=== PATIENT | male | born 1990 | race Caucasian/White ===

== ENCOUNTER 2017-04-03 16:45 | Emergency (ER) | payer OTHER ==
[~2017-04-03] VITALS: Ht 167.6 cm; Wt 67.1 kg
[2017-04-03 16:49] VITALS: TEMP 36.8; Ht 167.6 cm; Wt 67.1 kg
[2017-04-03] MEDS ORDERED: SODIUM CHLORIDE 0.9% 1000ML 1,000 ML IV STA (17:10)
[2017-04-03] MEDS ORDERED: MoRPHine SULFATE 10 MG/ML CARP/VIAL IV STA (17:10)
[2017-04-03] MEDS ORDERED: ALPR-411 PO (17:13)
[2017-04-03] MEDS ORDERED: OPTIRAY 320 IV PRN (17:30)
[2017-04-03 17:40] LABS: BASO % 0.2 %; BASO ABS # 0.02 K/uL (0-0.2); COMPLETE YES; EOS % 2.3 %; HEMATOCRIT 41.8 % (42-52); IG% 0.2 %; LYMPH % 24.7 %; MEAN CELL VOLUME 90.7 fL (80-100); MEAN CORPUSCULAR HEMOGLOBIN 30.4 pg (25-34); MEAN CORPUSCULAR HGB CONC 33.5 g/dl (32-36); NEUT % 65.6 %; PLATELET COUNT 250 K/uL (130-400); RED BLOOD COUNT 4.61 M/uL (4.7-6.1); WHITE BLOOD COUNT 9.32 K/uL (4.8-10.8)
[2017-04-03 17:49] LABS: CALCIUM 8.9 mg/dl (8.5-10.1); POTASSIUM 3.9 mmol/L (3.5-5.1)
[2017-04-03 17:50] LABS: BUN/CREATININE RATIO 13.3 (10-20); CREATININE 0.79 mg/dl (0.60-1.40)
[2017-04-03 17:51] LABS: PARTIAL THROMBOPLASTIN RATIO 1.1; PROTHROMBIN TIME (PATIENT) 10.6 SECONDS (9.0-12.0)
[2017-04-03 17:54] LABS: C-REACTIVE PROTEIN 0.86 mg/dl (0-0.29)
[2017-04-03] MEDS ORDERED: ONDANSETRON INJ 2 MG/ML 2 ML VIAL IV STA (18:39)
[2017-04-03] MEDS ORDERED: MoRPHine SULFATE 4 MG/ML 1 ML CARP\\VIAL IV STA (18:39)
--- NOTE | 2017-04-03 18:59 | DIAGNOSTIC IMAGING REPORT ---
CT SCAN OF THE RIGHT UPPER EXTREMITY WITH IV CONTRAST CLINICAL HISTORY: Right upper extremity pain and swelling. COMPARISON STUDY: Radiographs of the right hand dated 08/18/2016. TECHNIQUE: Following the IV administration of 120 cc of Optiray 320, CT scan of the right upper extremity is performed from above the elbow to the fingers. Images reviewed in the axial, sagittal, coronal planes. IV contrast was administered without complication. CT DOSE: 245.85 mGy.cm FINDINGS: The regional skeletal structures are normal in appearance. The radius and ulna are intact, as are the visualized bones of the wrist and hand. No fracture is seen. The wrist and elbow joints are grossly maintained. There is no bony erosion or periostitis. The musculature of the right forearm is normal in bulk. No subcutaneous gas is identified in the right forearm. No organized/rim-enhancing fluid collection is seen. There is subcutaneous soft tissue edema as well as subcutaneous fluid identified tracking along the radial soft tissues of the forearm. There is fluid seen tracking along the myofascial bundles involving the extensor musculature. The regional vessels are patent. IMPRESSION: 1. No acute bony abnormality is seen in the right forearm. 2. There is soft tissue edema with subcutaneous as well as deep soft tissue fluid identified on the radial aspect of the forearm. This tracks along the myofascial bundles. This is of indeterminant etiology and significance, possibly representing cellulitis. Clinical correlation will be Central. If there is clinical concern for necrotizing fasciitis then emergent surgical consultation with biopsy is recommended. 3. There is no organized fluid collection identified suggest abscess. No subcutaneous gas is seen. Electronically signed by: Junito Rosado M.D. 04/03/2017 6:58 PM Dictated Date/Time: 04/03/2017 6:29 PM
[2017-04-03] MEDS ORDERED: AMPICILLIN/SULBACTAM SOD INJ 3,000 MG in SODIUM CHLORIDE 0.9% 100ML 100 ML IV ONE (19:15)
--- NOTE | 2017-04-03 19:28 | EMERGENCY ROOM VISIT NOTE ---
History First contact with patient: 16:56 Chief Complaint: ARM PAIN Stated Complaint: R ARM PAIN/NUMB AND TINGLING - SENT BY [facility] History of Present Illness The patient is a 26 year old male who presents to the Emergency Room with complaints of right arm pain and swelling that started around 3 AM this morning. Patient states the pain has come on fairly abruptly and has gotten significantly worse today. Patient was seen at his PCPs office this afternoon and was sent to the ER for further evaluation. Past medical history significant for a previous crush injury to the right forearm resulting in compartment syndrome that was surgically repaired 12 years ago. Patient denies any chronic ongoing issues with his right arm. He does report some weakened hand grasp today due to the pain. He denies any numbness, tingling, redness, drainage, fever/chills, chest pain, shortness of breath. He denies any recent injury to his arm prior to start of his symptoms. He is right-hand dominant. He reports a lot of heavy lifting and repetitive motion activities at his job. Review of Systems GENERAL: Denies fevers, chills, malaise, fatigue, unintentional weight changes. HEENT: Denies dizziness, visual problems, hearing loss, tinnitus. Denies difficulty swallowing or oral lesions. PULMONARY: Denies cough, shortness of breath, sputum production or hemoptysis. CARDIOVASCULAR: Denies chest pain, palpitations, dyspnea on exertion, orthopnea or peripheral edema. GASTROINTESTINAL: Denies diarrhea, constipation, nausea, vomiting, or abdominal pain. GENITOURINARY: Denies dysuria, frequency, urgency or nocturia. NEUROLOGIC: Denies history of epilepsy, CVA, TIA or chronic headaches. MUSCULOSKELETAL: Denies history of joint tenderness/swelling. Right forearm swelling, pain. SKIN: Denies rashes or lesions. PSYCHIATRIC: Denies history of depression or mental illness. ENDOCRINE: Denies history of diabetes, thyroid disorders, abnormal hair growth or sexual dysfunction. Past Medical/Surgical History Medical Problems: (1) Gouty Arthropathy (2) History Of Tobacco Use (3) Tobacco Use Disorder Family History FH: cancer FH: diabetes mellitus FH: heart disease FH: kidney disease Social History Smoking Status: Former Smoker Alcohol Use: occasionally Marital Status: Housing Status: lives with family Occupation Status: unemployed Current/Historical Medications Scheduled Alprazolam (Xanax), 0.5 MG PO HS Cephalexin Monohydrate (Keflex), 500 MG PO QID Allergies Coded Allergies: No Known Allergies (Unverified , 04/03/17) Physical Exam Vital Signs Date Time Temp Pulse Resp B/P Pulse Ox O2 Delivery O2 Flow Rate FiO2 04/03/17 21:07 59 20 112/64 97 04/03/17 19:45 70 20 131/100 97 Room Air 04/03/17 18:36 63 16 129/65 97 04/03/17 16:49 36.8 64 20 124/79 100 Physical Exam CONSTITUTIONAL: No acute distress. Well appearing and well nourished. Alert and oriented X 4 with normal affect. HEENT: Normocephalic, atraumatic. Pupils equal, round and reactive to light, EOMI. TMs normal. Pharynx normal. NECK: Supple, full active range of motion without discomfort. RESPIRATORY: Clear to auscultation bilaterally with no wheezing, crackles, rhonchi or stridor. Equal expansion bilaterally. CARDIOVASCULAR: Regular rate and rhythm with no murmurs, rubs or gallops. Normal peripheral perfusion. No edema. GASTROINTESTINAL: Soft, nontender, nondistended. Bowel sounds present in all quadrants. MUSCULOSKELETAL: Full range of motion of all joints without discomfort. Moderate swelling of the lateral, proximal right forearm, tender to palpation. No erythema, not hot to touch. Distal pulses and cap refill intact, dull and sharp sensation intact. 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 No pain in the forearm with passive flexion of the fingers. No pain or swelling in the proximal upper extremity or shoulder joint. INTEGUMENTARY: No rash or other significant dermatologic conditions noted. NEUROLOGIC: Cranial nerves II-XII grossly intact. No focal neurologic deficits noted. Medical Decision & Procedures ER Provider Diagnostic Interpretation: CT SCAN OF THE RIGHT UPPER EXTREMITY WITH IV CONTRAST CLINICAL HISTORY: Right upper extremity pain and swelling. COMPARISON STUDY: Radiographs of the right hand dated 08/18/2016. TECHNIQUE: Following the IV administration of 120 cc of Optiray 320, CT scan of the right upper extremity is performed from above the elbow to the fingers. Images reviewed in the axial, sagittal, coronal planes. IV contrast was administered without complication. CT DOSE: 245.85 mGy.cm FINDINGS: The regional skeletal structures are normal in appearance. The radius and ulna are intact, as are the visualized bones of the wrist and hand. No fracture is seen. The wrist and elbow joints are grossly maintained. There is no bony erosion or periostitis. The musculature of the right forearm is normal in bulk. No subcutaneous gas is identified in the right forearm. No organized/rim-enhancing fluid collection is seen. There is subcutaneous soft tissue edema as well as subcutaneous fluid identified tracking along the radial soft tissues of the forearm. There is fluid seen tracking along the myofascial bundles involving the extensor musculature. The regional vessels are patent. IMPRESSION: 1. No acute bony abnormality is seen in the right forearm. 2. There is soft tissue edema with subcutaneous as well as deep soft tissue fluid identified on the radial aspect of the forearm. This tracks along the myofascial bundles. This is of indeterminant etiology and significance, possibly representing cellulitis. Clinical correlation will be Central. If there is clinical concern for necrotizing fasciitis then emergent surgical consultation with biopsy is recommended. 3. There is no organized fluid collection identified suggest abscess. No subcutaneous gas is seen. ----- ULTRASOUND RIGHT UPPER EXTREMITY VENOUS CLINICAL HISTORY: Right arm pain and swelling. COMPARISON STUDY: CT scan of the right upper extremity dated 04/03/2017. TECHNIQUE: Real-time, grayscale, and color Doppler sonography of the deep veins of the right upper extremity is performed. Compression and augmentation were utilized. FINDINGS: There is no sonographic evidence of deep venous thrombosis identified in the right upper extremity. The right internal jugular, axillary, and brachial veins are patent and normally compressible. Normal venous waveforms and augmentation are seen within the right subclavian vein. The cephalic and basilic veins are clear. The visualized radial and ulnar veins are patent. Subcutaneous soft tissue edema is noted in the forearm. IMPRESSION: There is no sonographic evidence of deep venous thrombosis identified in the right upper extremity. Laboratory Results 04/03/17 17:27 Red Blood Count 4.61, Mean Corpuscular Volume 90.7, Mean Corpuscular Hemoglobin 30.4, Mean Corpuscular Hemoglobin Concent 33.5, Mean Platelet Volume 9.0, Neutrophils (%) (Auto) 65.6, Lymphocytes (%) (Auto) 24.7, Monocytes (%) (Auto) 7.0, Eosinophils (%) (Auto) 2.3, Basophils (%) (Auto) 0.2, Neutrophils # (Auto) 6.12, Lymphocytes # (Auto) 2.30, Monocytes # (Auto) 0.65, Eosinophils # (Auto) 0.21, Basophils # (Auto) 0.02 04/03/17 17:27 Test 04/03/17 17:27 White Blood Count 9.32 K/uL (4.8-10.8) Red Blood Count 4.61 M/uL (4.7-6.1) Hemoglobin 14.0 g/dL (14.0-18.0) Hematocrit 41.8 % (42-52) Mean Corpuscular Volume 90.7 fL (80-100) Mean Corpuscular Hemoglobin 30.4 pg (25-34) Mean Corpuscular Hemoglobin Concent 33.5 g/dl (32-36) Platelet Count 250 K/uL (130-400) Mean Platelet Volume 9.0 fL (7.4-10.4) Neutrophils (%) (Auto) 65.6 % Lymphocytes (%) (Auto) 24.7 % Monocytes (%) (Auto) 7.0 % Eosinophils (%) (Auto) 2.3 % Basophils (%) (Auto) 0.2 % Neutrophils # (Auto) 6.12 K/uL (1.4-6.5) Lymphocytes # (Auto) 2.30 K/uL (1.2-3.4) Monocytes # (Auto) 0.65 K/uL (0.11-0.59) Eosinophils # (Auto) 0.21 K/uL (0-0.5) Basophils # (Auto) 0.02 K/uL (0-0.2) RDW Standard Deviation 40.6 fL (36.4-46.3) RDW Coefficient of Variation 12.3 % (11.5-14.5) Immature Granulocyte % (Auto) 0.2 % Immature Granulocyte # (Auto) 0.02 K/uL (0.00-0.02) Erythrocyte Sedimentation Rate 6 mm/hr (0-14) Prothrombin Time 10.6 SECONDS (9.0-12.0) Prothromb Time International Ratio 1.0 (0.9-1.1) Activated Partial Thromboplast Time 28.8 SECONDS (21.0-31.0) Partial Thromboplastin Ratio 1.1 Anion Gap 5.0 mmol/L (3-11) Est Creatinine Clear Calc Drug Dose 125.6 ml/min Estimated GFR () 141.6 Estimated GFR (Non- 122.2 BUN/Creatinine Ratio 13.3 (10-20) Calcium Level 8.9 mg/dl (8.5-10.1) Total Bilirubin 0.5 mg/dl (0.2-1) Direct Bilirubin 0.1 mg/dl (0-0.2) Aspartate Amino Transf (AST/SGOT) 12 U/L (15-37) Alanine Aminotransferase (ALT/SGPT) 29 U/L (12-78) Alkaline Phosphatase 70 U/L (45-117) C-Reactive Protein 0.86 mg/dl (0-0.29) Total Protein 7.2 gm/dl (6.4-8.2) Albumin 4.2 gm/dl (3.4-5.0) Medications Administered Medications (Trade) Dose Ordered Sig/Mando Route Start Time Stop Time Status Last Admin Dose Admin Morphine Sulfate 6 mg 6 mg NOW STAT IV 04/03/17 17:10 04/03/17 17:18 DC 04/03/17 17:37 6 MG Sodium Chloride (Nss 1000ml) 1,000 ml @ 999 mls/hr Q1H1M STAT IV 04/03/17 17:10 04/03/17 18:10 DC 04/03/17 17:37 999 MLS/HR Morphine Sulfate (MoRPHine SULFATE INJ) 4 mg NOW STAT IV 04/03/17 18:39 04/03/17 18:40 DC 04/03/17 19:00 4 MG Ondansetron HCl 4 mg 4 mg NOW STAT IV 04/03/17 18:39 04/03/17 18:40 DC 04/03/17 19:00 4 MG Ampicillin Sodium/ Sulbactam Sodium/ Sodium Chloride (Unasyn Inj/Nss 100ml) 108 ml @ 200 mls/hr ONE ONCE IV 04/03/17 19:15 04/03/17 19:47 DC 04/03/17 19:45 200 MLS/HR Acetaminophen/ Hydrocodone Bitart ([place] 5/325 Tab) 1 tab NOW STAT PO 04/03/17 20:07 04/03/17 20:08 DC 04/03/17 20:32 1 TAB Acetaminophen/ Hydrocodone Bitart ([place] 5/325mg Home Pack) 1 homepack UD ONCE PO 04/03/17 20:15 04/03/17 20:16 DC 04/03/17 20:32 1 HOMEPACK Medical Decision CC: Patient presenting with complaint of right forearm pain and swelling. Interpretation of Labs: Unremarkable, specifically no leukocytosis, normal inflammatory markers. Differential Diagnosis: Includes, but not limited to cellulitis, abscess, tendinitis, DVT Summary: Patient is alert and oriented, pleasant and cooperative, in no acute distress. Patient has moderate swelling and tenderness of the right forearm, but not pain out of proportion to exam. No crepitus. Not erythematous or hot to touch. Patient is afebrile with normal vital signs. He is nontoxic appearing. Distal extremity is neurovascularly intact. Labs are unremarkable and pointed away from an acute infection. Venous duplex of the right upper extremity is negative for DVT. CT with IV contrast of the upper extremity shows deep soft tissue fluid in the radial aspect of the forearm that coincides with the patient's area of tenderness and swelling. No imaging evidence of subcutaneous gas or other clinical concerns for necrotizing fasciitis. Given patient's previous history of compartment syndrome and CT findings, the patient was discussed with Dr. Geiger (orthopedics), who saw and evaluated the patient. Per Dr. Geiger, no suspicion for necrotizing fasciitis or compartment syndrome at this time, recommends compression dressing with AMOR wrap, and patient can follow up as outpatient. CT findings do suggest a possible cellulitis, will treat with antibiotics and patient will have close follow-up. IV dose Unasyn given in ED and patient sent out with course of Keflex. Pain improved with [place], take-home pack provided to patient for pain control at home. Patient reassessed multiple times throughout ED stay, he remains stable and well appearing. Patient was discussed with my attending physician, Dr. Munoz, who agrees with my assessment and disposition. Impression Primary Impression: Pain and swelling of right upper extremity Departure Information Dispostion Home / Self-Care Condition GOOD Prescriptions Cephalexin Monohydrate (Keflex) 500 Mg Cap 500 MG PO QID for 10 Days, #40 CAP Prov: Adriana Robles, GAUTAM 04/03/17 Referrals Vik Thacker III, M.D. (PCP) Capone, Mg J.,D.O. Patient Instructions ED Infec Skin Cellulitis, My [facility] Additional Instructions Wear the Amor wrap on your arm for comfort, to help with pain and swelling. You may apply ice and/or heat to the swollen area for comfort. Keep the arm elevated as much as possible to help reduce swelling. Tylenol and/or naproxen as needed for pain. You have been supplied with a small amount of [place] which you may use for severe pain. This is a narcotic and can make you drowsy, do not drive, operate machinery, or drink alcohol while you're taking it. Any future pain medications will have to come from your primary care doctor and cannot be supplied to you through the emergency department. Take the Keflex antibiotic as prescribed for the full 10 days. Call your orthopedic doctor to follow up early next week. Please return to the ER for worsening symptoms, including severe worsening pain , increased swelling, redness, or hot to the touch, streaking up the arm, fever/ chills, numbness/weakness of the arm or hand, or any other concerns.
--- NOTE | 2017-04-03 19:37 | DIAGNOSTIC IMAGING REPORT ---
ULTRASOUND RIGHT UPPER EXTREMITY VENOUS CLINICAL HISTORY: Right arm pain and swelling. COMPARISON STUDY: CT scan of the right upper extremity dated 04/03/2017. TECHNIQUE: Real-time, grayscale, and color Doppler sonography of the deep veins of the right upper extremity is performed. Compression and augmentation were utilized. FINDINGS: There is no sonographic evidence of deep venous thrombosis identified in the right upper extremity. The right internal jugular, axillary, and brachial veins are patent and normally compressible. Normal venous waveforms and augmentation are seen within the right subclavian vein. The cephalic and basilic veins are clear. The visualized radial and ulnar veins are patent. Subcutaneous soft tissue edema is noted in the forearm. IMPRESSION: There is no sonographic evidence of deep venous thrombosis identified in the right upper extremity. Electronically signed by: Junito Rosado M.D. 04/03/2017 7:35 PM Dictated Date/Time: 04/03/2017 7:34 PM
[2017-04-03] MEDS ORDERED: HYDROCODONE/ACETAMOPHEN 5/325MG TAB PO STA (20:07)
[2017-04-03] MEDS ORDERED: NORCO 5/325MG HOME PACK PO ONE (20:15)
[2017-04-03] MEDS ORDERED: CEPH500C PO (21:05)
[2017-04-03 21:07] VITALS: BP 112/64; PULSE 59; O2SAT 97
== END 2017-04-03 21:08 | disposition home or self-care (01) ==
LOC: C.EDB 16:48
DX: M79.601 Pain in right arm (principal); M79.89 Other specified soft tissue disorders; Z87.828 Personal history of other (healed) physical injury and trauma; Z87.891 Personal history of nicotine dependence; Z98.890 Other specified postprocedural states; Z83.3 Family history of diabetes mellitus

== ENCOUNTER 2018-03-02 18:14 | Emergency (ER) | payer OTHER ==
[~2018-03-02] VITALS: Ht 167.6 cm; Wt 60.1 kg
[~2018-03-02 18:14] MED LIST: ALPR-411 PO
[2018-03-02 18:18] VITALS: BP 146/63; TEMP 36.7; Ht 167.6 cm; Wt 60.1 kg
--- NOTE | 2018-03-02 19:27 | DIAGNOSTIC IMAGING REPORT ---
L KNEE 3 VIEWS CLINICAL HISTORY: fall; L knee pain COMPARISON: None FINDINGS: Alignment of the left knee is anatomic. Joint spaces are preserved. There is no acute fracture. Evaluation for possible joint effusion is suboptimal on this exam. No osseous lesion is identified. There is mild prepatellar soft tissue swelling. IMPRESSION: 1. No acute fracture. 2. Prepatellar soft tissue swelling. Electronically signed by: Gentry Malhotra M.D. 03/02/2018 7:26 PM Dictated Date/Time: 03/02/2018 7:25 PM
[2018-03-02] MEDS ORDERED: KETO10TA PO (19:52)
[2018-03-02 19:59] VITALS: PULSE 72; O2SAT 98
--- NOTE | 2018-03-03 15:08 | EMERGENCY ROOM VISIT NOTE ---
ED Visit Note First contact with patient: 18:20 Chief Complaint: Left knee pain. History of Present Illness: Mr. Denny is a 27-year-old white male who ambulates into the ED accompanied by female friend complaining of anterior left knee pain. Patient reports last night he he tripped and fell and struck his left knee on a concrete step at home. He reports since that time he has had pain and swelling over the anterior and lateral aspect of the left knee. Currently he describes his pain as a throbbing sensation. He rates his discomfort 6/10. His pain is nonradiating. Pain worsens with flexion beyond 90 hyperextension. He has not identified any alleviating factors related to the pain. His pain slightly increases when he is weightbearing and ambulating. He has not taken any medications for pain prior to arrival at the hospital. He denies any associated symptoms including lightheadedness or dizziness before the fall, striking his head at the time of the fall, loss of consciousness at this time of the fall, signs of head injury since the fall, lumbar back pain, left hip pain, left ankle pain, left lower extremity weakness/numbness/tingling. Review of Systems: As noted above in history of present illness. Past Medical History: Unspecified kidney disease, bronchitis and stomach disorder; status post right forearm repair Current Medications: Xanax. Allergies to Medications: Patient denies. Social History: Patient is currently employed; he feels safe in his home environment; he admits to tobacco use and denies alcohol use. Physical Examination: Vital Signs: Date Time Temp Pulse Resp B/P (MAP) Pulse Ox O2 Delivery O2 Flow Rate FiO2 03/02/18 19:59 72 20 98 03/02/18 18:18 36.7 116 18 146/63 99 Room Air GENERAL: 27-year-old male in mild to moderate distress due to pain, nontoxic- appearing, afebrile and hemodynamically stable. NEUROLOGICAL: Awake, alert and oriented to person, place and time. Answering questions appropriately and following commands. Normal gait. Good hand eye coordination. No focal motor or sensory deficits. SKIN: Warm, dry and pink. No open soft tissue eruptions. Patient does have a contusion over the anterior aspect of the knee with extension down over the lateral aspect of the knee and then down to the midcalf area. This area is swollen and tender to palpation. LEFT LOWER EXTREMITY: No gross bony deformity. No tenderness over the hip, thigh, lower leg, ankle or foot. Moderate anterior and lateral swelling with contusion noted. Positive bounce test. Negative patellar apprehension test. Negative ballottement test. No laxity of the collateral or cruciate ligaments. Stacy's test was deferred. Decreased range of motion in knee to approximately 90 of flexion and no hyperextension of the knee. Full range of motion in all movements of the hip and ankle against resistance. Throughout the lower leg patient was intact to light sensation. The capillary refill was brisk and distal pulses were intact. ED Course: Patient is assessed as noted above. Patient's medication list was reviewed. Patient was offered pain medication and refused. Left Knee X-Rays: Was read by myself and the radiologist showing no acute fractures or dislocations. Mild prepatellar soft tissue swelling. Patient was placed in a knee immobilizer and nonweightbearing crutches. Patient was educated about today's findings and instructed on his treatment plan ; he verbalized understanding and agreement with this plan. Clinical Impression: Left knee contusion. Decision-Making: Initially my differential diagnosis I consider patella fracture , knee fracture, knee contusion, ligamentous sprain, tenderness strain and other causes. Disposition: Patient discharged home in stable condition accompanied by female friend; prior to departure he was reassessed and subjectively reported he was feeling better and rated his discomfort 4/10. Plan: Patient was encouraged to alternate Toradol and acetaminophen every 3 hours for pain, the use of ice for pain, knee elevation, use of immobilizer and nonweightbearing crutches. Patient was signed off work for 3 days. Patient was encouraged to follow-up with primary care provider for recheck and possible referral to orthopedics. Patient was encouraged to return the ED for worsening/uncontrolled pain, uncontrolled swelling, leg weakness/numbness/tingling or any new/concerning symptoms.
== END 2018-03-02 20:00 | disposition home or self-care (01) ==
LOC: C.EDB 18:16 → C.EDD 20:00
DX: S80.02XA Contusion of left knee, initial encounter (principal); W01.198A Fall on same level from slipping, tripping and stumbling with subsequent striking against other object, initial encounter; Z79.899 Other long term (current) drug therapy; Z72.0 Tobacco use